=== PATIENT | male | born 1940 | race Caucasian/White ===

== ENCOUNTER → 2020-04-12 | Outpatient (CLI) | payer MEDICARE | END | disposition home or self-care (01) | LOC: COVID19 03:01 | DX: Z20.828 Contact with and (suspected) exposure to other viral communicable diseases (principal) ==

== ENCOUNTER 2023-10-25 17:23 | Emergency (ER) | payer OTHER, MEDICARE ==
[~2023-10-25] VITALS: Ht 167.6 cm; Wt 83.9 kg
[2023-10-25] MEDS ORDERED: TRAMADOL HCL50 MG PO (18:19)
== END 2023-10-25 18:24 | disposition home or self-care (01) ==
LOC: ED 17:23
DX: S50.12XA Contusion of left forearm, initial encounter (principal); S09.8XXA Other specified injuries of head, initial encounter; M25.512 Pain in left shoulder; I10 Essential (primary) hypertension; R51.9 Headache, unspecified; V43.52XA Car driver injured in collision with other type car in traffic accident, initial encounter; Y93.89 Activity, other specified; Y92.410 Unspecified street and highway as the place of occurrence of the external cause; Y99.8 Other external cause status